=== PATIENT | male | born 1990 | race Caucasian/White ===

== ENCOUNTER 2025-03-05 08:00 | Day surgery (SDC) | payer OTHER ==
[2025-03-05] MEDS ORDERED: NALOXONE HCL 0.4 MG/ML AMPUL IV STA (09:53)
[2025-03-05] MEDS ORDERED: FLUMAZENIL 0.5 MG/5 ML ML IV STA (09:53)
[2025-03-05] MEDS ORDERED: fentaNYL CITRATE 50 MCG/ML AMPUL IV PUSH ONE (10:00)
[2025-03-05] MEDS ORDERED: MIDAZOLAM HCL 2 MG/2 ML VIAL IV ONE (10:00)
[2025-03-05] MEDS ORDERED: DIPHENHYDRAMINE HCL 50 MG/ML VIAL 1ML IV ONE (10:00)
[2025-03-05] MEDS ORDERED: ONDANSETRON HCL 2 MG/ML VIAL IV ONE (10:00)
== END 2025-03-05 10:35 | disposition home or self-care (01) ==
LOC: AMB-ENDOS 08:00
PROVIDERS: ATTEND Colon & Rectal Surgery
DX: K62.5 Hemorrhage of anus and rectum (principal); K63.5 Polyp of colon; K62.1 Rectal polyp